=== PATIENT | female | born 2000 | race Hispanic/Latino ===

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

== ENCOUNTER 2018-03-03 12:52 | Emergency (ER) | payer MEDICAID ==
[2018-03-03 13:06] VITALS: RESP 18; TEMP 98.3; BMI 22.8
--- NOTE | 2018-03-03 14:36 | RAD ---
PROCEDURE: Left Foot Radiographs. HISTORY: r/o fx COMPARISON: None. FINDINGS: BONES: Normal. No fracture. JOINTS: Normal. SOFT TISSUES: Normal. OTHER FINDINGS: None. IMPRESSION: Normal left foot radiographs.
--- NOTE | 2018-03-03 14:36 | RAD ---
PROCEDURE: Left Ankle Radiographs. HISTORY: r/o fx COMPARISON: None FINDINGS: BONES: Normal. No fracture. JOINTS: Normal. No osteoarthritis. Ankle mortise maintained. Talar dome intact SOFT TISSUES: Normal. OTHER FINDINGS: None. IMPRESSION: Normal left ankle radiographs.
[2018-03-03 15:00] VITALS: BP 118/70; PULSE 78; O2SAT 99
--- NOTE | 2018-03-03 16:08 | ED PDOC ---
Arrival/HPI - General Chief Complaint: Lower Extremity Problem/Injury Time Seen by Provider: 03/03/18 13:18 Historian: Patient - History of Present Illness Narrative History of Present Illness (Text): 03/03/18 16:08 A 17 year old female presents to the emergency department complaining of left foot pain s/p twisting ankle three days ago. Patient is able to ambulate with limp. Patient denies hitting her head when falling. Denies any symptoms prior to fall. Patient denies any other complaints at this time. Time/Duration: < week Symptom Onset: Sudden Symptom Course: Unchanged Activities at Onset: Rest Past Medical History - Provider Review Nursing Documentation Reviewed: Yes - Infectious Disease Hx of Infectious Diseases: None - Psychiatric Hx Substance Use: No Family/Social History - Physician Review Nursing Documentation Reviewed: Yes Family/Social History: No Known Family HX Smoking Status: Light Smoker < 10 Cigarettes Daily Hx Alcohol Use: No Hx Substance Use: No Allergies/Home Meds Allergies/Adverse Reactions: Allergies No Known Allergies Allergy (Verified 09/08/17 22:13) Home Medications: Home Meds Medication Instructions Recorded Confirmed No Known Home Med 09/08/17 03/03/18 Review of Systems - Physician Review All systems were reviewed & negative as marked: Yes - Review of Systems Constitutional: absent: Fevers Musculoskeletal: Other (left foot, ankle pain) Neurological: absent: Headache Physical Exam Vital Signs Reviewed: Yes Vital Signs Temp Pulse Resp BP Pulse Ox 03/03/18 15:00 78 18 118/70 99 03/03/18 13:05 98.3 F 86 18 125/71 100 Temperature: Afebrile Blood Pressure: Normal Pulse: Regular Respiratory Rate: Normal Appearance: Positive for: Well-Appearing, Non-Toxic, Comfortable Pain Distress: None Mental Status: Positive for: Alert and Oriented X 3 - Systems Exam Head: Present: Atraumatic, Normocephalic Pupils: Present: PERRL Extroacular Muscles: Present: EOMI Conjunctiva: Present: Normal Mouth: Present: Moist Mucous Membranes Neck: Present: Normal Range of Motion Respiratory/Chest: Present: Clear to Auscultation, Good Air Exchange. No: Respiratory Distress, Accessory Muscle Use Cardiovascular: Present: Regular Rate and Rhythm, Normal S1, S2. No: Murmurs Abdomen: No: Tenderness, Distention, Peritoneal Signs Back: Present: Normal Inspection Upper Extremity: Present: Normal Inspection. No: Cyanosis, Edema Lower Extremity: Present: Other (mild tenderness and ecchymosis lateral aspect dorsum of left foot; good capillary refill; no knee tenderness) Neurological: Present: GCS=15, CN II-XII Intact, Speech Normal Skin: Present: Warm, Dry, Normal Color. No: Rashes Psychiatric: Present: Alert, Oriented x 3, Normal Insight, Normal Concentration Medical Decision Making ED Course and Treatment: 03/03/18 16:06 Impression: A 17 year old female with left foot, ankle pain. Differential Diagnosis included but are not limited to: left foot, ankle pain r /o fracture Plan: -- Radiology left foot -- Radiology left ankle -- Motrin -- Reassess and disposition Prior Visits: Notes and results from previous visits were reviewed. Patient was last seen in the emergency department on 09/08/17 for evaluation of left sided chest pain radiating to abdomen. Progress Notes: 03/03/18 14:38 Left Ankle Radiographs- Creator : Tavon Chavez MD IMPRESSION: Normal left ankle radiographs. 03/03/18 14:39 Left Foot Radiographs- Creator : Tavon Chavez MD IMPRESSION: Normal left foot radiographs. - RAD Interpretation Radiology Orders: 03/03/18 13:26 ANKLE LEFT 3 VIEWS ROUTINE [RAD] Stat FOOT LEFT 3 VIEWS ROUTINE [RAD] Stat - Medication Orders Current Medication Orders: Discontinued Medications Ibuprofen (Motrin Tab) 600 mg PO STAT STA Stop: 03/03/18 13:27 Last Admin: 03/03/18 13:46 Dose: 600 mg - Scribe Statement The provider has reviewed the documentation as recorded by the Lazaro Salgado Provider Scribe Attestation: All medical record entries made by the Scribe were at my direction and personally dictated by me. I have reviewed the chart and agree that the record accurately reflects my personal performance of the history, physical exam, medical decision making, and the department course for this patient. I have also personally directed, reviewed, and agree with the discharge instructions and disposition. Disposition/Present on Arrival - Present on Arrival Any Indicators Present on Arrival: No History of DVT/PE: No History of Uncontrolled Diabetes: No Urinary Catheter: No History of Decub. Ulcer: No History Surgical Site Infection Following: None - Disposition Have Diagnosis and Disposition been Completed?: Yes Diagnosis: Foot sprain Disposition: HOME/ ROUTINE Disposition Time: 14:35 Condition: GOOD Discharge Instructions (ExitCare): Foot Sprain (DC) Additional Instructions: Thank you for letting us take care of you today. The emergency medical care you received today was directed at your acute symptoms. If you were prescribed any medication, please fill it and take as directed. It may take several days for your symptoms to resolve. Return to the Emergency Department if your symptoms worsen, do not improve, or if you have any other problems. Please contact your doctor or call one of the physicians/clinics you have been referred to that are listed on the Patient Visit Information form that is included in your discharge packet. Bring any paperwork you were given at discharge with you along with any medications you are taking to your follow up visit. Our treatment cannot replace ongoing medical care by a primary care provider (PCP) outside of the emergency department. Thank you for allowing the [facility] team to be part of your care today. Follow up with your primary doctor in 3-5 days for re-evaluation and further management. Referrals: Jai Ewing MD [Primary Care Provider] - Follow up with primary Forms: [employer] ([place])
== END 2018-03-03 14:59 | disposition home or self-care (01) ==
LOC: ED 12:52
DX: S93.602A Unspecified sprain of left foot, initial encounter (principal); X50.1XXA Overexertion from prolonged static or awkward postures, initial encounter; Y92.9 Unspecified place or not applicable

== ENCOUNTER 2018-06-17 09:51 | Emergency (ER) | payer MEDICAID ==
[2018-06-17 10:28] VITALS: BMI 21.9
[2018-06-17 10:33] VITALS: RESP 18; TEMP 97.8
--- NOTE | 2018-06-17 11:02 | ED PDOC ---
Arrival/HPI - General Chief Complaint: Upper Extremity Problem/Injury Time Seen by Provider: 06/17/18 10:57 Historian: Patient - History of Present Illness Narrative History of Present Illness (Text): 06/17/18 10:58 17 y/o female, no significant pmh, nkda, c/o lt. sided neck/shoulder spasm today with no fall or trauma. Pt. stated that she does a lot of heavy lifting and carrying, admits working alot last night, aching pain, aggravated by movement, no fever or chills, no stiffness of the neck, no night sweat, doesn't feel well to go to work and cant see her own pmd so she is here at the ER. Pt. has no palpitation, no numbness or tingling, no dizziness, no other medical or psychological complaints. Past Medical History - Provider Review Nursing Documentation Reviewed: Yes - Infectious Disease Hx of Infectious Diseases: None - Psychiatric Hx Substance Use: Yes (weed) Family/Social History - Physician Review Nursing Documentation Reviewed: Yes Family/Social History: Unknown Family HX Smoking Status: Light Smoker < 10 Cigarettes Daily Hx Alcohol Use: No Hx Substance Use: Yes (weed) Substance used: weed Allergies/Home Meds Allergies/Adverse Reactions: Allergies No Known Allergies Allergy (Verified 06/17/18 10:32) Review of Systems - Review of Systems Constitutional: absent: Fatigue, Fevers Eyes: absent: Vision Changes ENT: absent: Hearing Changes Respiratory: absent: SOB, Cough Cardiovascular: absent: Chest Pain Gastrointestinal: absent: Abdominal Pain, Nausea, Vomiting Musculoskeletal: Myalgias. absent: Arthralgias, Back Pain Skin: absent: Rash, Pruritis Neurological: absent: Headache Psychiatric: absent: Anxiety, Depression Physical Exam Vital Signs Reviewed: Yes Vital Signs Temp Pulse Resp BP Pulse Ox 06/17/18 10:28 97.8 F 84 18 104/64 100 Temperature: Afebrile Blood Pressure: Normal Pulse: Regular Respiratory Rate: Normal Appearance: Positive for: Well-Appearing, Non-Toxic, Comfortable Pain Distress: Mild Mental Status: Positive for: Alert and Oriented X 3 - Systems Exam Head: Present: Atraumatic, Normocephalic Pupils: Present: PERRL Extroacular Muscles: Present: EOMI Conjunctiva: Present: Normal Mouth: Present: Moist Mucous Membranes Neck: Present: Normal Range of Motion, Trachea Midline, Other (+lt. trapezius). No: Meningeal Signs, MIDLINE TENDERNESS, Paraspinal Tenderness, Lymphadenopathy Respiratory/Chest: Present: Clear to Auscultation, Good Air Exchange. No: Respiratory Distress, Accessory Muscle Use Cardiovascular: Present: Regular Rate and Rhythm, Normal S1, S2. No: Murmurs Abdomen: No: Tenderness, Distention, Peritoneal Signs Back: Present: Normal Inspection Upper Extremity: Present: Normal Inspection, Other (Lt. shoulder: mild spasm and muscular hypertrophy on the lt. trapezius muscle region, no bony tenderness , FROM without limitation, sensation intact, motor 5/5. ). No: Cyanosis, Edema Lower Extremity: Present: Normal Inspection. No: Edema Neurological: Present: GCS=15, CN II-XII Intact, Speech Normal, Motor Func Grossly Intact, Gait Normal, Memory Normal Skin: Present: Warm, Dry, Normal Color. No: Rashes Lymphatic: No: Cervical Adenopathy Psychiatric: Present: Alert, Oriented x 3, Normal Insight, Normal Concentration Medical Decision Making ED Course and Treatment: 06/17/18 11:04 -Urine hcg is negative -Discharge home with motrin, flexeril, heat compression, bed rest, avoid strenuous exercise or activity, follow up with your own pmd within 2 days, return to the ER for any new or worsening signs or symptoms. - PA / LIFE ENRICHMENT DIRECTOR / Resident Statement MD/ has reviewed & agrees with the documentation as recorded. Disposition/Present on Arrival - Present on Arrival Any Indicators Present on Arrival: No History of DVT/PE: No History of Uncontrolled Diabetes: No Urinary Catheter: No History of Decub. Ulcer: No History Surgical Site Infection Following: None - Disposition Have Diagnosis and Disposition been Completed?: Yes Diagnosis: Strain of left trapezius muscle Disposition: HOME/ ROUTINE Disposition Time: 11:05 Patient Plan: Discharge Patient Problems: Current Active Problems Problem Status Onset Strain of left trapezius muscle Acute Condition: GOOD Additional Instructions: -Discharge home with motrin, flexeril, heat compression, bed rest, avoid strenuous exercise or activity, follow up with your own pmd within 2 days, return to the ER for any new or worsening signs or symptoms. Prescriptions: Cyclobenzaprine [Cyclobenzaprine HCl] 10 mg PO TID PRN #21 tab PRN Reason: Other Ibuprofen [Motrin Tab] 600 mg PO QID PRN #30 tab PRN Reason: Other Referrals: Jai Ewing MD [Primary Care Provider] - Follow up with primary Keyonna Mcdowell MD [Staff Provider] - Follow up with primary Forms: [employer] ([place]), WORK NOTE
[2018-06-17 12:02] VITALS: BP 112/62; PULSE 72; O2SAT 98
== END 2018-06-17 12:02 | disposition home or self-care (01) ==
LOC: ED 09:51
DX: S46.912A Strain of unspecified muscle, fascia and tendon at shoulder and upper arm level, left arm, initial encounter (principal); X58.XXXA Exposure to other specified factors, initial encounter; F17.210 Nicotine dependence, cigarettes, uncomplicated

== ENCOUNTER 2019-03-10 11:11 | Emergency (ER) | payer MEDICAID ==
[2019-03-10 11:12] VITALS: BMI 21.9
[2019-03-10 11:26] VITALS: TEMP 98.3
--- NOTE | 2019-03-10 11:56 | ED PDOC ---
Arrival/HPI - General Chief Complaint: Upper Extremity Problem/Injury Historian: Patient - History of Present Illness Narrative History of Present Illness (Text): 03/10/19 11:49 A 18 year old female, whose past medical history includes left shoulder injury, presents to the ED complaining of left shoulder pain for the past 3 days. Patient notes she had a left shoulder injury about 5 months ago, for which she received physical therapy but was not able to follow up with physician after because he moved. Patient reports pain radiates to her neck and collarbones. Patient mentions she was lifting weights today when pain was exacerbated and patient was unable to continue lifting weights. Patient notes pain is worse when she lifts her arm beyond 180 degrees. Patient denies any headaches or tingling/numbness of the arm, hand or fingers. PMD: Dr. Ewing Time/Duration: < week Symptom Onset: Gradual Symptom Course: Unchanged Activities at Onset: Light Context: Home Past Medical History - Provider Review Nursing Documentation Reviewed: Yes - Infectious Disease Hx of Infectious Diseases: None - Psychiatric Hx Substance Use: Yes (weed) Family/Social History - Physician Review Nursing Documentation Reviewed: Yes Family/Social History: No Known Family HX Smoking Status: Light Smoker < 10 Cigarettes Daily Hx Alcohol Use: No Hx Substance Use: Yes (weed) Substance used: weed Allergies/Home Meds Allergies/Adverse Reactions: Allergies No Known Allergies Allergy (Verified 06/17/18 10:32) Review of Systems - Physician Review All systems were reviewed & negative as marked: Yes - Review of Systems Musculoskeletal: Neck Pain (Left side.), Other (Left Shoulder/collarbone pain.) Neurological: absent: Headache Physical Exam Vital Signs Reviewed: Yes Vital Signs Temp Pulse Resp BP Pulse Ox 03/10/19 11:24 98.3 F 61 19 114/72 98 Temperature: Afebrile Blood Pressure: Normal Pulse: Regular Respiratory Rate: Normal Appearance: Positive for: Well-Appearing, Non-Toxic, Comfortable Pain Distress: None Mental Status: Positive for: Alert and Oriented X 3 - Systems Exam Head: Present: Atraumatic, Normocephalic Pupils: Present: PERRL Extroacular Muscles: Present: EOMI Conjunctiva: Present: Normal Upper Extremity: Present: NORMAL PULSES (Normal radial pulse.), Tenderness (Tenderness to palpation at lateral 1/3rd of left clavicle. ), Neurovascularly Intact (Sensations intact.), Capillary Refill < 2s, Other (No ecchymosis, no tenting of skin. Negative neer test. Pain with abduction of LUE beyong 180 degrees.). No: Deformity (No gross deformities.) Neurological: Present: GCS=15, CN II-XII Intact, Speech Normal Skin: Present: Warm, Dry, Normal Color. No: Rashes Psychiatric: Present: Alert, Oriented x 3, Normal Insight, Normal Concentration Medical Decision Making ED Course and Treatment: 03/10/19 12:05 Impression: A 18 year old female who presents to the ED with left shoulder pain for the past 3 days. Plan: -- Valium -- Toradol -- Left shoulder extremity -- Reassess and disposition Prior Visits: Notes and results from previous visits were reviewed. Patient was last seen in the emergency department on 06/17/18. Progress Notes: 03/10/19 12:30 XR reviewed with no evidence of acromioclavicular separation, shoulder dislocation or clavicular fracture. Patient updated on results and advised to follow up with a orthopedic suregon for further investigation. She demonstrates understanding and will follow up. Opportunity for questions given and answered. Scripts given. She is stable for discharge. - RAD Interpretation Radiology Orders: 03/10/19 11:31 SHOULDER LEFT [RAD] Stat - Scribe Statement The provider has reviewed the documentation as recorded by the Raffaeleibclaudine Brewster Provider Scribe Attestation: All medical record entries made by the Scribe were at my direction and personally dictated by me. I have reviewed the chart and agree that the record accurately reflects my personal performance of the history, physical exam, medical decision making, and the department course for this patient. I have also personally directed, reviewed, and agree with the discharge instructions and disposition. Disposition/Present on Arrival - Present on Arrival Any Indicators Present on Arrival: No History of DVT/PE: No History of Uncontrolled Diabetes: No Urinary Catheter: No History of Decub. Ulcer: No History Surgical Site Infection Following: None - Disposition Have Diagnosis and Disposition been Completed?: Yes Diagnosis: Shoulder pain, left Disposition: HOME/ ROUTINE Disposition Time: 12:33 Patient Plan: Discharge Condition: IMPROVED Discharge Instructions (ExitCare): Shoulder Pain (DC) Print Language: CHINESE Additional Instructions: All medical record entries made by the Scribe were at my direction and personally dictated by me. I have reviewed the chart and agree that the record accurately reflects my personal performance of the history, physical exam, medical decision making, and the department course for this patient. I have also personally directed, reviewed, and agree with the discharge instructions and disposition. Please follow up with your PCP Take medications as needed Please call and schedule an appointment with the orthopedic surgeon listed in your discharge paperwork if you would like to pursue an MRI Prescriptions: Cyclobenzaprine [Cyclobenzaprine HCl] 10 mg PO Q6H #10 tab Naproxen 500 mg PO BID #12 tab Referrals: Jai Ewing MD [Primary Care Provider] - Follow up with primary Keyonna Mcdowell MD [Staff Provider] - Follow up with primary Forms: [employer] [facility] (Vietnamese), WORK NOTE
[2019-03-10 12:38] VITALS: BP 111/73; PULSE 63; RESP 18; O2SAT 100
--- NOTE | 2019-03-10 13:39 | RAD ---
Date of service: 03/10/2019 PROCEDURE: Radiographs of the Left Shoulder HISTORY: Shoulder injury COMPARISON: No prior. TECHNIQUE: 3 views obtained. FINDINGS: BONES: Normal. No fracture. JOINTS: Normal. Glenohumeral and acromioclavicular joints preserved. No osteoarthritis. SOFT TISSUES: Normal. OTHER FINDINGS: None. IMPRESSION: No evidence of acute displaced fracture nor dislocation.
== END 2019-03-10 12:46 | disposition home or self-care (01) ==
LOC: ED 11:11
DX: M25.512 Pain in left shoulder (principal)
CPT/HCPCS: 73030; 81025; 96372; 99284; J1885